=== PATIENT | female | born 1995 | race Caucasian/White ===

== ENCOUNTER 2021-11-21 05:27 | Inpatient (IN) | payer BC ==
[~2021-11-21] VITALS: Ht 152.4 cm; Wt 86.2 kg
[~2021-11-21 05:27] MED LIST: COLACE 100MG C100 MG PO
[2021-11-21 06:32] LABS: HEMOGLOBIN 11.5 gm/dl (12.3-15.3); RED BLOOD COUNT 3.78 M/UL (4.00-5.10); WHITE BLOOD COUNT 10.8 K/UL (4.5-11.0)
[2021-11-21] MEDS ORDERED: FERROUS SULFAT325 MG PO (07:45)
[2021-11-21] MEDS ORDERED: PRENATAL VITAM1 EAC8 PO (07:46)
[2021-11-21] MEDS ORDERED: PHENERGAN 25 MG25 M1 PO (07:48)
[2021-11-21] MEDS ORDERED: DOCUSATE SODIU100 MG PO (14:10)
[2021-11-21] MEDS ORDERED: IBUPROFEN600 MG PO (14:10)
[2021-11-21] MEDS ORDERED: HYDROCODON-ACE1 EAC4 PO (14:10)
[2021-11-22 06:23] LABS: HEMOGLOBIN 10.4 gm/dl (12.3-15.3)
== END 2021-11-23 16:41 | disposition home or self-care (01) | DRG 807 ==
LOC: OB 05:27
PROVIDERS: Obstetrics & Gynecology; ADMIT Obstetrics & Gynecology
PROC: 10E0XZZ Delivery of Products of Conception, External Approach (ICD-10-PCS; principal; 2021-11-21)
PROC: 10907ZC Drainage of Amniotic Fluid, Therapeutic from Products of Conception, Via Natural or Artificial Opening (ICD-10-PCS; 2021-11-21)
PROC: 4A1HXCZ Monitoring of Products of Conception, Cardiac Rate, External Approach (ICD-10-PCS; 2021-11-21)
PROC: 3E0234Z Introduction of Serum, Toxoid and Vaccine into Muscle, Percutaneous Approach (ICD-10-PCS; 2021-11-21)
DX: O80 Encounter for full-term uncomplicated delivery (principal); Z37.0 Single live birth; Z3A.39 39 weeks gestation of pregnancy; Z90.49 Acquired absence of other specified parts of digestive tract; Z20.822 Contact with and (suspected) exposure to COVID-19; Z28.310 Unvaccinated for COVID-19; Z83.3 Family history of diabetes mellitus; Z82.49 Family history of ischemic heart disease and other diseases of the circulatory system; Z80.3 Family history of malignant neoplasm of breast; Z23 Encounter for immunization
CPT/HCPCS: 36415; 81001; 82800; 85014; 85018; 85025; 90471; 90707; 90715